=== PATIENT | female | born 2000 | race Caucasian/White ===

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

== ENCOUNTER 2022-09-30 21:28 | Emergency (ER) | payer BC, OTHER ==
[~2022-09-30] VITALS: Ht 167.7 cm; Wt 65.2 kg
--- NOTE | 2022-09-30 21:37 | ED GU-Female ---
General Stated Complaint: VAGINAL BLEEDING History of Present Illness Date Seen by Provider: Sep 30, 2022 Time Seen by Provider: 21:32 Initial Comments 22-year-old female presents with some very mild spotting/vaginal bleeding. Patient is taking 3 home test today and a benefits faintly positive she is not sure if she is or not. Her last menstrual period was September 07, 2022 which would make her 3 weeks 2 days. Patient not having pain. No other systemic complaints Allergies and Home Medications Allergies Coded Allergies: No Known Drug Allergies (Unverified , 09/30/22) Patient Home Medication List Home Medication List Reviewed: Yes [Levothyroxine] , (Reported) Entered as Reported by: RAIMUNDO WHITE on 09/30/222146 Last Action: New Order Review of Systems Review of Systems Constitutional: no symptoms reported EENTM: no symptoms reported Respiratory: no symptoms reported Cardiovascular: no symptoms reported Gastrointestinal: no symptoms reported Genitourinary: see HPI Musculoskeletal: no symptoms reported Skin: no symptoms reported Psychiatric/Neurological: No Symptoms Reported Physical Exam Vital Signs Vital Signs - First Documented 09/30/22 21:40 Temp 36.6 Pulse 94 Resp 16 B/P (MAP) 143/95 (111) Pulse Ox 100 O2 Delivery Room Air Capillary Refill : Height, Weight, BMI Height: '" Weight: lbs. oz. kg; BMI Method: General Appearance: WD/WN, no apparent distress Neck: full range of motion, supple Cardiovascular: normal peripheral pulses, regular rate, rhythm Respiratory: lungs clear, normal breath sounds Gastrointestinal: non tender, soft Pelvic: other (Exam deferred) Extremities: normal range of motion, non-tender Neurologic/Psychiatric: no motor/sensory deficits, alert, normal mood/affect Skin: normal color, warm/dry Progress/Results/Core Measures Suspected Sepsis SIRS Temperature: Pulse: Respiratory Rate: Blood Pressure / Mean: Results/Orders Lab Results Laboratory Tests Test 09/30/22 21:48 Range/Units Serum Test, Qualitative POSITIVE NEGATIVE My Orders Orders - DEXTER SHEPHERD DO Hcg,Qualitative Serum (09/30/22 21:39) Vital Signs/I&O 09/30/22 21:40 Temp 36.6 Pulse 94 Resp 16 B/P (MAP) 143/95 (111) Pulse Ox 100 O2 Delivery Room Air Capillary Refill : Progress Note : Progress Note Patient's blood test was positive however it was just barely faint to register is positive. I discussed with patient that it could be very early as she would only be 3 weeks 2 days versus a false positive early in menstrual cycle which is possible. I discussed with her that if she has vaginal bleeding consistent with a menstrual cycle she recheck about a week after her menstrual cycle to see if it still is positive. Recommended that if she has just some spotting and mildly that she rechecks in about 1 week. She should start vitamins. She should return with any concerns or significant tenderness in her lower abdomen. Patient was stable and discharged Departure Impression Primary Impression: test positive Additional Impression: Spotting affecting Qualified Codes: O26.851 - Spotting complicating , first trimester Disposition: 01 HOME, SELF-CARE Condition: Stable Departure-Patient Inst. Patient Instructions: Bleeding in Early ED Add. Discharge Instructions: Please start a vitamin. If you have vaginal bleeding consistent with a menstrual cycle please retake a test approximately 1 week after this menstrual cycle ends. If he does have mild spotting and nonmenstrual bleeding please take a repeat test in 1 week. Please follow-up with your primary care provider in 2 weeks if you have additional positive 's te st to start your care. DEXTER SHEPHERD DO Sep 30, 2022 21:37
[2022-09-30] MEDS ORDERED: Levothyroxine (21:47)
[2022-09-30 22:20] VITALS: BP 143/95
== END 2022-09-30 22:20 | disposition home or self-care (01) ==
LOC: EDUNIT# 21:28 → ER FS 21:32
DX: O26.851 Spotting complicating pregnancy, first trimester (principal); Z28.310 Unvaccinated for COVID-19; Z3A.01 Less than 8 weeks gestation of pregnancy
CPT/HCPCS: 36415; 84703